=== PATIENT | male | born 1970 | race Caucasian/White ===

== ENCOUNTER 2019-04-23 19:49 | Emergency (ER) | payer OTHER, MEDICAID ==
[~2019-04-23] VITALS: Ht 175.3 cm; Wt 90.7 kg
[~2019-04-23 19:49] MED LIST: CLON1TAB12 PO; LEVE500T9 PO; PRAM0.5T3 PO
[2019-04-23 19:52] VITALS: BP_SYST 127
--- NOTE | 2019-04-23 19:55 | NUR ---
Patient to ER bed H1 for evaluation. Side rails up.
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
--- NOTE | 2019-04-23 20:50 | NUR ---
Toshia solorzano in [facility] - 04/23/19 at 2050 by [email or web address] Transported to radiology by wheelchair
--- NOTE | 2019-04-23 21:09 | NUR ---
ER Dr. Garcias at bedside examining patient.
[2019-04-23] MEDS ORDERED: KETOROLAC TROMETHAMINE 60 MG/2 ML VIAL IM ONE (21:15)
--- NOTE | 2019-04-23 21:30 | NUR ---
Pt was given Toradol IM, requesting medication to be given in the arm. ER MD aware
--- NOTE | 2019-04-23 21:32 | NUR ---
Patient transported to radiology via gurney, accompanied by rad staff.
--- NOTE | 2019-04-23 22:47 | NUR ---
Pt is sleeping in bed, no acute distress noted at this time. Will continue to monitor
--- NOTE | 2019-04-23 23:30 | NUR ---
Pt is sleeping in bed, no acute distress noted at this time
[2019-04-24 00:12] VITALS: BP_SYST 127
--- NOTE | 2019-04-24 00:14 | NUR ---
Patient given written and verbal discharge instructions and verbalizes understanding. ER MD discussed with patient the results and treatment provided. Patient in stable condition. ID arm band Rx of IBU given. Patient educated on pain management and to follow up with PMD. Pain Scale 0. Opportunity for questions provided and answered. Medication side effect fact sheet provided. Resource packet, food and transportation was provided upon discharge. Transportation and food were declined and patient signed homeless wavier.
== END 2019-04-24 00:12 | disposition home or self-care (01) ==
LOC: SED 19:49
DX: S83.91XA Sprain of unspecified site of right knee, initial encounter (principal); M71.9 Bursopathy, unspecified; Z79.899 Other long term (current) drug therapy; X58.XXXA Exposure to other specified factors, initial encounter; Y93.01 Activity, walking, marching and hiking; Y92.89 Other specified places as the place of occurrence of the external cause; Y99.8 Other external cause status
CPT/HCPCS: 73564; 73700; 96372; 99284; J1885

== ENCOUNTER 2021-09-24 17:31 | Emergency (ER) | payer OTHER, MEDICAID ==
[~2021-09-24] VITALS: Ht 175.3 cm; Wt 90.7 kg
[2021-09-24 17:40] VITALS: BP_SYST 142
--- NOTE | 2021-09-24 17:40 | NUR ---
Pt to triage for assessment awaiting open ER bed.
--- NOTE | 2021-09-24 17:43 | NUR ---
Pt to bed 5 for evaluation.
--- NOTE | 2021-09-24 17:44 | NUR ---
Pt AAO and ambulatory reporting right knee pain X 1 week. Pt reports that the swelling continues to increase and pain is 7/10. Pt denies any prior medical issue.
--- NOTE | 2021-09-24 17:45 | NUR ---
Report given to JHONATHAN Duncan who will assume care.
--- NOTE | 2021-09-24 17:48 | NUR ---
ER at bedside examining patient.
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
[2021-09-24] MEDS ORDERED: ACETAMINOPHEN 500 MG TABLET PO ONE (18:15)
--- NOTE | 2021-09-24 18:16 | NUR ---
Patient transported to radiology via wheelchair, accompanied by staff.
--- NOTE | 2021-09-24 19:25 | NUR ---
ASSUMED CARE OF PT FROM MART[facility] RING
[2021-09-24 19:52] VITALS: BP_SYST 142
--- NOTE | 2021-09-24 19:53 | NUR ---
Patient given written and verbal discharge instructions and verbalizes understanding. ER MD discussed with patient the results and treatment provided. Patient in stable condition. ID arm band removed. Patient educated on pain management and to follow up with PMD. Pain Scale 2/10. Opportunity for questions provided and answered. Medication side effect fact sheet provided.
== END 2021-09-24 19:53 | disposition home or self-care (01) ==
LOC: SED 17:31
DX: S00.83XA Contusion of other part of head, initial encounter (principal); M25.561 Pain in right knee; Z79.899 Other long term (current) drug therapy; W18.39XA Other fall on same level, initial encounter; Y93.89 Activity, other specified; Y92.89 Other specified places as the place of occurrence of the external cause; Y99.8 Other external cause status
CPT/HCPCS: 70450-TC; 73564; 76376; 99284